=== PATIENT | male | born 1995 | race American Indian/Alaskan Native ===

== ENCOUNTER 2018-02-04 11:07 | Inpatient (IN) | payer OTHER ==
[2018-02-04 12:14] LABS: Hematocrit 46.8 % (35.5-45.6); Hemoglobin 15.9 gm/dl (11.8-15.2); Mean Corpuscular HGB Conc 34 % (32-34); Mean Corpuscular Hemoglobin 29 pg (28-32); Mean Corpuscular Volume 85 fl (84-94); Platelet Count 234 K/mm3 (140-440); Red Blood Count 5.51 M/mm3 (3.65-5.03)
[2018-02-04 12:31] LABS: BUN/Creatinine Ratio 16; Blood Urea Nitrogen 11 mg/dL (9-20); Calcium 9.5 mg/dL (8.4-10.2); Hemolysis Index 3
[2018-02-04] MEDS ORDERED: NACL 0.9% 500 ML 500 ML IV ONE (13:06)
[2018-02-04] MEDS ORDERED: NACL 0.9% 1000 ML 1,000 ML ONE ×2 (13:19→22:22)
[2018-02-04] MEDS ORDERED: NACL 0.9% 1000 ML 2,000 ML IV ONE (13:22)
[2018-02-04] MEDS ORDERED: ZOSYN/NS 4.5GM/100ML 4.5 GM/100 ML VIAL IV ONE (13:23)
[2018-02-04] MEDS ORDERED: SODIUM CHLORIDE FLUSH SYRINGE 10 ML IV PRN (13:42)
[2018-02-04] MEDS ORDERED: TYLENOL PO PRN (13:42)
[2018-02-04] MEDS ORDERED: ZOFRAN IV PRN ×2 (13:42→22:04)
[2018-02-04] MEDS ORDERED: MORPHINE IV PRN (13:42)
[2018-02-04] MEDS ORDERED: PROVENTIL IH PRN (13:42)
--- NOTE | 2018-02-04 13:44 | History and Physical Report ---
History of Present Illness Chief complaint: I have a bump on my butt History of present illness: 22 YO Male with CP, RHP, Contracture presents to ED for evaluation. Pt states that he has experienced a painful "bump" on his right buttock for the past 3 days. Pt denies drainage, fever, chills, CP, palpitations, trauma, or recent ill contacts. Pt seen and evaluated in ED and found to have Right Gluteal Cellulitis with suspicion of abscess. Pt admitted to medical floor. Surgery consulted. - Past History Past Medical History: other (CP, Contracture) Past Surgical History: bowel surgery, Other (Shunt) Social history: single, lives with family. denies: smoking, alcohol abuse, prescription drug abuse Family history: no significant family history (reviewed) Medications and Allergies Allergies Allergy/AdvReac Type Severity Reaction Status Date / Time No Known Allergies Allergy Unverified 02/04/18 11:34 Home Medications Medication Instructions Recorded Confirmed Last Taken Type ALBUTEROL Inhaler 2 inh BID 02/04/18 02/04/18 Unknown History Pulmicort Flexhaler 2 inh ID BID 02/04/18 02/04/18 Unknown History Active Meds: Active Medications Acetaminophen (Tylenol) 650 mg PO Q4H PRN PRN Reason: Pain MILD(1-3)/Fever >100.5/HIRSCH Albuterol (Proventil) 2.5 mg IH Q4HRT PRN PRN Reason: Shortness Of Breath Sodium Chloride (Nacl 0.9% 1000 Ml) 2,000 mls @ 999 mls/hr IV BOLUS ONE Stop: 02/04/18 15:22 Piperacillin Sod/Tazobactam Sod (Zosyn/Ns 4.5gm/100ml) 4.5 gm in 100 mls @ 200 mls/hr IV ONCE ONE Stop: 02/04/18 13:52 Vancomycin HCl 1,250 mg/ (Sodium Chloride) 262.5 mls @ 166.667 mls/hr IV ONCE ONE Stop: 02/04/18 15:34 Vancomycin HCl (Vancomycin/Ns 1 Gm/250 Ml) 1 gm in 250 mls @ 166.667 mls/hr IV Q12H YIMI Morphine Sulfate (Morphine) 2 mg IV Q4H PRN PRN Reason: Pain, Moderate (4-6) Ondansetron HCl (Zofran) 4 mg IV Q8H PRN PRN Reason: Nausea And Vomiting Vancomycin HCl (Vancomycin Pharmacy To Dose) 1 each IV PKCONSULT YIMI; Protocol Review of Systems Constitutional: no weight loss, no weight gain, no fever, no chills Ears, nose, mouth and throat: no ear pain, no ear discharge, no tinnitis, no decreased hearing, no nose pain Cardiovascular: no chest pain, no orthopnea, no palpitations, no edema, no syncope Respiratory: no cough, no cough with sputum, no excessive sputum, no hemoptysis , no shortness of breath Gastrointestinal: no abdominal pain, no nausea, no vomiting, no diarrhea, no constipation Genitourinary Male: no hematuria, no flank pain, no discharge, no urinary frequency, no urinary hesitancy, no nocturia, no incontinence Rectal: no pain, no incontinence, no bleeding Musculoskeletal: no neck stiffness, no neck pain, no shooting arm pain, no arm numbness/tingling, no low back pain, no shooting leg pain Integumentary: redness, boils Neurological: no transient paralysis, no paralysis, no parathesias, no numbness , no tingling, no seizures Psychiatric: no anxiety, no memory loss, no change in sleep habits, no sleep disturbances, no insomnia, no hypersomnia, no change in appetite Endocrine: no cold intolerance, no heat intolerance, no polyphagia, no polydipsia, no polyuria, no nocturia Hematologic/Lymphatic: no easy bruising, no easy bleeding, no lymphadenopathy Allergic/Immunologic: no urticaria, no allergic rhinitis, no wheezing, no persistent infections, no anaphylaxis, no angioedema Exam - Constitutional Vitals: Temp Pulse Resp BP Pulse Ox 99.2 F 115 H 18 135/76 99 02/04/18 11:31 02/04/18 11:31 02/04/18 11:31 02/04/18 11:31 02/04/18 11:31 General appearance: Present: mild distress - EENT Eyes: Present: PERRL ENT: hearing intact, clear oral mucosa - Neck Neck: Present: supple, normal ROM - Respiratory Respiratory effort: normal Respiratory: bilateral: CTA - Cardiovascular Heart Sounds: Present: S1 & S2. Absent: rub, click - Extremities Extremities: pulses symmetrical, No edema Peripheral Pulses: within normal limits - Abdominal General gastrointestinal: Present: soft, non-tender, non-distended, normal bowel sounds Male genitourinary: Present: normal - Integumentary Integumentary: Present: clear, warm, dry, erythema (Right buttock) - Musculoskeletal Musculoskeletal: strength equal bilaterally, other (R contracture) - Psychiatric Psychiatric: appropriate mood/affect, intact judgment & insight - Neurologic Neurologic: CNII-XII intact, moves all extremities Results - Labs CBC & Chem 7: 02/04/18 13:37 02/04/18 13:37 Labs: Abnormal lab results 02/04/18 02/04/18 02/04/18 Range/Units 12:00 12:00 12:00 WBC 12.7 H (4.5-11.0) K/mm3 RBC 5.51 H (3.65-5.03) M/mm3 Hgb 15.9 H (11.8-15.2) gm/dl Hct 46.8 H (35.5-45.6) % Creatinine 0.7 L (0.8-1.5) mg/dL Glucose 105 H (75-100) mg/dL Lactic Acid 3.10 H* (0.7-2.0) mmol/L Assessment and Plan - Patient Problems (1) Cellulitis Current Visit: Yes Status: Acute Qualifiers: Laterality: right Plan to address problem: Right Buttock Cellulitis: IV antibiotic therapy, CBC, CMP, CT Abdomen/Pelvis, IVF resuscitation, (2) Abscess, gluteal, right Current Visit: Yes Status: Acute Plan to address problem: CT ABdomen Pelvis, surgery consulted in ED, surgical intervention as per surgical team. (3) SIRS (systemic inflammatory response syndrome) Current Visit: Yes Status: Acute Plan to address problem: IV antibiotics, IVF resuscitation, monitor uop q shift, CBM, CMP, (4) DVT prophylaxis Current Visit: Yes Status: Acute Plan to address problem: SCD to BLE while in bed.
[2018-02-04 13:54] LABS: Basophils % (Auto) 0.3 % (0.0-1.8); Eosinophils # (Auto) 0.2 K/mm3 (0.0-0.4); Eosinophils % (Auto) 1.5 % (0.0-4.3); Hemoglobin 14.7 gm/dl (11.8-15.2); Mean Corpuscular HGB Conc 34 % (32-34); Mean Corpuscular Hemoglobin 29 pg (28-32); Mean Corpuscular Volume 85 fl (84-94); Monocytes % (Auto) 8.5 % (0.0-7.3); Platelet Count 220 K/mm3 (140-440); Red Blood Count 5.08 M/mm3 (3.65-5.03); Red Cell Distribution Width 13.5 % (13.2-15.2)
[2018-02-04] MEDS ORDERED: VANCOMYCIN 1,250 MG in NACL 0.9% 250ML 250 ML IV ONE (14:00)
[2018-02-04] MEDS ORDERED: VANCOMYCIN PHARMACY TO DOSE IV SCH (14:00)
[2018-02-04 14:02] LABS: INR 1.13 (0.87-1.13)
[2018-02-04 14:13] LABS: Alanine Aminotransferase 19 units/L (7-56); BUN/Creatinine Ratio 16; Blood Urea Nitrogen 11 mg/dL (9-20); Hemolysis Index 14
[2018-02-04 14:41] LABS: Bilirubin,Urine NEG (Negative); Blood,Urine NEG (Negative); Color,Urine Yellow (Yellow); Mucus,Urine 1+ /HPF; Protein,Urine <15 mg/dL mg/dL (Negative)
[2018-02-04] MEDS ORDERED: XYLOCAINE 1% 20 mL INFILTRATI STA (15:57)
--- NOTE | 2018-02-04 16:18 | Consultation ---
History of Present Illness Consult date: 02/04/18 Reason for consult: other (wound gluteal abscess) Chief complaint: buttock pain and lump - History of present illness History of present illness: 22 yo M with hx of CP and multiple past abdominal surgeries presents with c/o pain of the right buttock. The pain is pressure like, started 3 days ago, and localized to the right gluteal area. The pain is mild when laying on his side but is a 10/10 when the area is touched. He is not able to sit down. He denies drainage, f/c, cp, sob, n/v, abd pain. He has never had anything like this in the past. Past History Past Medical History: other (cerebral palsy) Social history: no significant social history Family history: no significant family history Medications and Allergies Allergies Allergy/AdvReac Type Severity Reaction Status Date / Time No Known Allergies Allergy Unverified 02/04/18 11:34 Active Meds: Active Medications Acetaminophen (Tylenol) 650 mg PO Q4H PRN PRN Reason: Pain MILD(1-3)/Fever >100.5/HIRSCH Albuterol (Proventil) 2.5 mg IH Q4HRT PRN PRN Reason: Shortness Of Breath Vancomycin HCl (Vancomycin/Ns 1 Gm/250 Ml) 1 gm in 250 mls @ 166.667 mls/hr IV Q12H YIMI Morphine Sulfate (Morphine) 2 mg IV Q4H PRN PRN Reason: Pain, Moderate (4-6) Ondansetron HCl (Zofran) 4 mg IV Q8H PRN PRN Reason: Nausea And Vomiting Sodium Chloride (Sodium Chloride Flush Syringe 10 Ml) 10 ml IV BID YIMI Sodium Chloride (Sodium Chloride Flush Syringe 10 Ml) 10 ml IV PRN PRN PRN Reason: LINE FLUSH Vancomycin HCl (Vancomycin Pharmacy To Dose) 1 each IV PKCONSULT YIMI; Protocol Review of Systems All systems: negative (10 point ROS performed and negative except for that listed in HPI) Exam Vital Signs Temp Pulse Resp BP Pulse Ox 99.2 F 115 H 18 135/76 99 02/04/18 11:31 02/04/18 11:31 02/04/18 11:31 02/04/18 11:31 02/04/18 11:31 Narrative exam: Gen: AAOx3. NAD. childish affect CV: S1, S2+ Resp: even and unlabored Ext: no c/c/e Gluteal: R upper intergluteal abscess with discoloration of skin overlying area , very foul smelling discharge. Very TTP. Patient does not allow exam secondary to pain. Results - Labs 02/04/18 13:37 02/04/18 13:37 Abnormal lab results 02/04/18 02/04/18 02/04/18 Range/Units 12:00 12:00 12:00 WBC 12.7 H (4.5-11.0) K/mm3 RBC 5.51 H (3.65-5.03) M/mm3 Hgb 15.9 H (11.8-15.2) gm/dl Hct 46.8 H (35.5-45.6) % [place] % (Auto) (0.0-7.3) % [place] # (0.0-0.8) K/mm3 Seg Neutrophils % (40.0-70.0) % Seg Neutrophils # (1.8-7.7) K/mm3 PT (12.2-14.9) Sec. VBG pH (7.320-7.420) Creatinine 0.7 L (0.8-1.5) mg/dL Glucose 105 H (75-100) mg/dL Lactic Acid 3.10 H* (0.7-2.0) mmol/L 02/04/1818 02/04/18 Range/Units 13:37 13:37 13:37 WBC 11.9 H (4.5-11.0) K/mm3 RBC 5.08 H (3.65-5.03) M/mm3 Hgb (11.8-15.2) gm/dl Hct (35.5-45.6) % [place] % (Auto) 8.5 H (0.0-7.3) % [place] # 1.0 H (0.0-0.8) K/mm3 Seg Neutrophils % 72.7 H (40.0-70.0) % Seg Neutrophils # 8.6 H (1.8-7.7) K/mm3 PT 15.1 H (12.2-14.9) Sec. VBG pH (7.320-7.420) Creatinine 0.7 L (0.8-1.5) mg/dL Glucose (75-100) mg/dL Lactic Acid (0.7-2.0) mmol/L 02/04/18 Range/Units 13:37 WBC (4.5-11.0) K/mm3 RBC (3.65-5.03) M/mm3 Hgb (11.8-15.2) gm/dl Hct (35.5-45.6) % [place] % (Auto) (0.0-7.3) % [place] # (0.0-0.8) K/mm3 Seg Neutrophils % (40.0-70.0) % Seg Neutrophils # (1.8-7.7) K/mm3 PT (12.2-14.9) Sec. VBG pH 7.315 L (7.320-7.420) Creatinine (0.8-1.5) mg/dL Glucose (75-100) mg/dL Lactic Acid (0.7-2.0) mmol/L Diabetes panel 02/04/18 02/04/18 Range/Units 12:00 13:37 Sodium 141 141 (137-145) mmol/L Potassium 3.9 3.8 (3.6-5.0) mmol/L Chloride 102.4 103.7 (98-107) mmol/L Carbon Dioxide 25 24 (22-30) mmol/L BUN 11 11 (9-20) mg/dL Creatinine 0.7 L 0.7 L (0.8-1.5) mg/dL Glucose 105 H 84 (75-100) mg/dL Calcium 9.5 9.0 (8.4-10.2) mg/dL AST 13 (5-40) units/L ALT 19 (7-56) units/L Alkaline Phosphatase 91 (35-129) units/L Total Protein 7.4 (6.3-8.2) g/dL Albumin 4.0 (3.9-5) g/dL Calcium panel 02/04/18 02/04/18 Range/Units 12:00 13:37 Calcium 9.5 9.0 (8.4-10.2) mg/dL Albumin 4.0 (3.9-5) g/dL Pituitary panel 02/04/18 02/04/18 Range/Units 12:00 13:37 Sodium 141 141 (137-145) mmol/L Potassium 3.9 3.8 (3.6-5.0) mmol/L Chloride 102.4 103.7 (98-107) mmol/L Carbon Dioxide 25 24 (22-30) mmol/L BUN 11 11 (9-20) mg/dL Creatinine 0.7 L 0.7 L (0.8-1.5) mg/dL Glucose 105 H 84 (75-100) mg/dL Calcium 9.5 9.0 (8.4-10.2) mg/dL Adrenal panel 02/04/18 02/04/18 Range/Units 12:00 13:37 Sodium 141 141 (137-145) mmol/L Potassium 3.9 3.8 (3.6-5.0) mmol/L Chloride 102.4 103.7 (98-107) mmol/L Carbon Dioxide 25 24 (22-30) mmol/L BUN 11 11 (9-20) mg/dL Creatinine 0.7 L 0.7 L (0.8-1.5) mg/dL Glucose 105 H 84 (75-100) mg/dL Calcium 9.5 9.0 (8.4-10.2) mg/dL Total Bilirubin 0.40 (0.1-1.2) mg/dL AST 13 (5-40) units/L ALT 19 (7-56) units/L Alkaline Phosphatase 91 (35-129) units/L Total Protein 7.4 (6.3-8.2) g/dL Albumin 4.0 (3.9-5) g/dL - Imaging CT scan - abdomen: report reviewed, image reviewed CT scan - pelvis: report reviewed, image reviewed Assessment and Plan 22 yo M with right gluteal abscess, hx of cerebral palsy and multiple abdominal surgeries Plan: 1. NPO 2. IVF 3. vanco and zosyn IV 4. prn pain control 5. The patient cannot tolerate bedside debridement. He will not even allow a thorough physical exam because of pain and anxiety. I will schedule him for OR for incision and drainage of gluteal abscess. All risks, benefits, alternatives were discussed with the patient and his mother and consent signed by mother. 6. wound care consult post op Thank you for this consultation, please call with questions or concerns.
--- NOTE | 2018-02-04 17:13 | Emergency Department Report ---
ED General Adult HPI - General Chief complaint: Skin/Abscess/Foreign Body Stated complaint: RIGHT SIDED LEG PAIN Time Seen by Provider: 02/04/18 13:02 Source: patient Mode of arrival: Ambulatory Limitations: No Limitations - History of Present Illness Initial comments: This is a 22 year old male probably a poor historian but is able to answer questions quite coherently. He is ambulatory without assistance. Presents with his family members. He has a history of cerebral palsy and right sided weakness chronically. He states that he has had a bump in the right gluteal fold for 3 days. He is noted to have a very foul and probably anaerobic odor about him. However he states that he has not had any drainage. He does not report any fever or chills. He has a history of previous colostomy and ileostomy. The family denies that he has a history of Crohn's disease. I do not think he has had any prior I&D of that area. History is somewhat limited secondary to language barrier of the family and the patient's cerebral palsy. -: days(s) (states 3 days) Location: buttocks Radiation: non-radiation Quality: burning Consistency: intermittent Improves with: none Worsens with: other (pressure on area) Associated Symptoms: denies other symptoms Treatments Prior to Arrival: none - Related Data Home Medications Medication Instructions Recorded Confirmed Last Taken ALBUTEROL Inhaler 2 inh BID 02/04/18 02/04/18 Unknown Pulmicort Flexhaler 2 inh ID BID 02/04/18 02/04/18 Unknown Allergies Allergy/AdvReac Type Severity Reaction Status Date / Time No Known Allergies Allergy Unverified 02/04/18 11:34 ED Review of Systems ROS: Stated complaint: RIGHT SIDED LEG PAIN Other details as noted in HPI Constitutional: denies: chills, fever Eyes: denies: eye pain, eye discharge, vision change ENT: denies: ear pain, throat pain Respiratory: denies: cough, shortness of breath, wheezing Cardiovascular: denies: chest pain, palpitations Endocrine: no symptoms reported Gastrointestinal: as per HPI. denies: abdominal pain, nausea, diarrhea Genitourinary: denies: urgency, dysuria Musculoskeletal: denies: back pain, joint swelling, arthralgia Skin: denies: rash, lesions Neurological: denies: headache, weakness, paresthesias Psychiatric: denies: anxiety, depression Hematological/Lymphatic: denies: easy bleeding, easy bruising ED Past Medical Hx - Past Medical History Hx Asthma: Yes Additional medical history: cerebral palsy,shunt, right-sides numbness, right hand contractors - Surgical History Additional Surgical History: shunt,RAMIRO stomach - Social History Smoking Status: Never Smoker - Medications Home Medications: Home Medications Medication Instructions Recorded Confirmed Last Taken Type ALBUTEROL Inhaler 2 inh BID 02/04/18 02/04/18 Unknown History Pulmicort Flexhaler 2 inh ID BID 02/04/18 02/04/18 Unknown History ED Physical Exam - General Limitations: Physical Limitation General appearance: alert, in no apparent distress - Head Head exam: Present: atraumatic, normocephalic - Eye Eye exam: Present: normal appearance, PERRL, EOMI. Absent: scleral icterus - ENT ENT exam: Present: mucous membranes moist - Neck Neck exam: Present: normal inspection. Absent: tenderness, meningismus - Respiratory Respiratory exam: Present: normal lung sounds bilaterally. Absent: respiratory distress - Cardiovascular Cardiovascular Exam: Present: regular rate, normal rhythm. Absent: systolic murmur, diastolic murmur, rubs, gallop - GI/Abdominal GI/Abdominal exam: Present: soft, normal bowel sounds, other (surgical scars multiple). Absent: distended, tenderness, guarding, rebound, rigid - Rectal Rectal exam: Present: other (there is an abscess without pointing in the right gluteal fold. Rectal exam wasn't possible due to the patient's hallway position.) - Extremities Exam Extremities exam: Present: other (right upper extremity contracture) - Back Exam Back exam: Present: normal inspection - Neurological Exam Neurological exam: Present: alert, oriented X3, other (chronic right hemiparesis ) - Psychiatric Psychiatric exam: Present: normal mood, flat affect - Skin Skin exam: Present: warm, dry, intact, normal color. Absent: rash ED Course Vital Signs 02/04/18 02/04/18 02/04/18 11:31 15:10 15:13 Temperature 99.2 F 98.9 F Pulse Rate 115 H 97 H Respiratory 18 Rate Blood Pressure 135/76 Blood Pressure 109/69 [Right] O2 Sat by Pulse 99 97 Oximetry - Reevaluation(s) Reevaluation #1: Patient's lactic acid level was over 3. He was treated for presumed sepsis. Consult to surgery was placed. He was begun on Zosyn and vancomycin. Had multiple prior surgeries. There was a reasonable possibility of a deep-seated infection. A CT of his abdomen was ordered. The patient was admitted to the hospitalist with a consult to surgery for further care and evaluation in stable condition. 02/04/18 17:16 ED Medical Decision Making - Lab Data Result diagrams: 02/04/18 13:37 02/04/18 13:37 Laboratory Results - last 24 hr 02/04/18 02/04/18 02/04/18 12:00 12:00 12:00 WBC 12.7 H RBC 5.51 H Hgb 15.9 H Hct 46.8 H MCV 85 MCH 29 MCHC 34 RDW 14.0 Plt Count 234 Lymph % (Auto) [place] % (Auto) Eos % (Auto) Baso % (Auto) Lymph # [place] # Eos # Baso # Seg Neutrophils % Seg Neutrophils # PT INR VBG pH Sodium 141 Potassium 3.9 Chloride 102.4 Carbon Dioxide 25 Anion Gap 18 BUN 11 Creatinine 0.7 L Estimated GFR > 60 BUN/Creatinine Ratio 16 Glucose 105 H Lactic Acid 3.10 H* Calcium 9.5 Total Bilirubin AST ALT Alkaline Phosphatase Total Protein Albumin Albumin/Globulin Ratio 02/04/18 02/04/18 02/04/18 13:37 13:37 13:37 WBC 11.9 H RBC 5.08 H Hgb 14.7 Hct 43.0 MCV 85 MCH 29 MCHC 34 RDW 13.5 Plt Count 220 Lymph % (Auto) 17.0 [place] % (Auto) 8.5 H Eos % (Auto) 1.5 Baso % (Auto) 0.3 Lymph # 2.0 [place] # 1.0 H Eos # 0.2 Baso # 0.0 Seg Neutrophils % 72.7 H Seg Neutrophils # 8.6 H PT 15.1 H INR 1.13 VBG pH Sodium Potassium Chloride Carbon Dioxide Anion Gap BUN Creatinine Estimated GFR BUN/Creatinine Ratio Glucose Lactic Acid 1.40 Calcium Total Bilirubin AST ALT Alkaline Phosphatase Total Protein Albumin Albumin/Globulin Ratio 02/04/18 02/04/18 13:37 13:37 WBC RBC Hgb Hct MCV MCH MCHC RDW Plt Count Lymph % (Auto) [place] % (Auto) Eos % (Auto) Baso % (Auto) Lymph # [place] # Eos # Baso # Seg Neutrophils % Seg Neutrophils # PT INR VBG pH 7.315 L Sodium 141 Potassium 3.8 Chloride 103.7 Carbon Dioxide 24 Anion Gap 17 BUN 11 Creatinine 0.7 L Estimated GFR > 60 BUN/Creatinine Ratio 16 Glucose 84 Lactic Acid Calcium 9.0 Total Bilirubin 0.40 AST 13 ALT 19 Alkaline Phosphatase 91 Total Protein 7.4 Albumin 4.0 Albumin/Globulin Ratio 1.2 - Radiology Data Radiology results: pending (CT report is still pending.) interpreted by me: I do see evidence of the right gluteal abscess on CT. Report is pending. Chest x-ray yet pending Critical care attestation.: If time is entered above; I have spent that time in minutes in the direct care of this critically ill patient, excluding procedure time. ED Disposition Clinical Impression: Abscess, gluteal, right, Elevated lactic acid level Disposition: OP ADMIT IP TO THIS HOSP Is pt being admited?: Yes Does the pt Need Aspirin: No Condition: Stable Time of Disposition: 17:21
--- NOTE | 2018-02-04 17:28 | XRay Report ---
FINAL REPORT EXAM: XR CHEST 1V AP HISTORY: possible Sepsis,GLUTEAL FOLD ABSCESS TECHNIQUE: AP portable view of the chest PRIORS: None. FINDINGS: Lines, tubes, and devices: N/A Lungs and pleura: Trachea is normal in position. Lungs are clear of infiltrate, pleural effusion, vascular congestion, or pneumothorax. Patient is rotated to the right. Cardiomediastinal silhouette: Cardiac and mediastinal silhouettes are unremarkable. Other: Bony structures are intact. IMPRESSION: No acute cardiopulmonary process seen.
--- NOTE | 2018-02-04 17:46 | Cat Scan Report ---
FINAL REPORT EXAM: CT ABDOMEN PELVIS W CON HISTORY: gluteal fold abscess,sepsis TECHNIQUE: Axial images were performed from the lung bases to the pubic symphysis. Multiplanar reformats are performed on the acquisition scanner. Total exam DLP 1781.75 mGy-cm Patient was scanned prone. Delayed phase images were performed Comparison: None FINDINGS: Clear lung bases. Normal enhancement and appearance of the liver, spleen, pancreas, gallbladder, bilateral adrenal glands and bilateral kidneys. There appears to be an artifact or collateral circulation around the periphery of the left lobe liver. Mesenteric vasculature is unremarkable. Bowel pattern is nonobstructive. There is atypical fluid in the right posterior subhepatic space/Jenkins's pouch and paracolic gutter posterior to the colon. There is motion degradation. Normal appendix right lower quadrant, slightly motion degraded. Moderately distended urinary bladder. Prostate is not enlarged. Multiple mildly prominent bilateral inguinal lymph nodes. We no significant retroperitoneal adenopathy. Right gluteal area of induration beginning at the level of the distal sacrum with a focal phlegmonous appearing region centrally measuring approximately 2.4 x 2.3 centimeters. No drainable abscess identified. Underlying bone does not appear to be affected. There is no intramuscular abscess. Delayed phase imaging demonstrates normal contrast excretion and filling of the urinary bladder There is no peroneal fluid or air. IMPRESSION: 2.4 x 2.3 centimeter right gluteal fold phlegmonous appearing process with surrounding inflammation but no definite drainable abscess, beginning at the level the distal sacrum/coccyx. No definite evidence for erosion of the underlying bone or involvement of the muscular layer. Morison's pouch/right para colic gutter simple appearing fluid from uncertain etiology. Exam is mildly motion degraded. The appendix is normal. There isalteration the anatomy due to the prone scanning. Dextroscoliosis lumbosacral spine.
[2018-02-04] MEDS ORDERED: VERSED ONE (21:58)
[2018-02-04] MEDS ORDERED: DIPRIVAN 10 MG/ML IV ONE (21:59)
[2018-02-04] MEDS ORDERED: DILAUDID IV PRN (22:04)
[2018-02-04] MEDS ORDERED: XYLOCAINE 2% INFILTRATI ONE (22:40)
[2018-02-04] MEDS ORDERED: NACL 0.9% IR ONE (22:40)
--- NOTE | 2018-02-04 22:58 | Operative Report ---
Operative Report Operative Report: Date of operation: 02/04/18 Preoperative diagnosis: Right gluteal abscess, sepsis Postoperative diagnosis: Same as above Procedure performed: Incision and drainage of right gluteal abscess Surgeon:Mp Bonilla DO Anesthesia: Mac Estimated blood loss: 10 mL Findings: 5 cm (l) x 6 cm (w) x 3 cm (d) right gluteal abscess Complications: None Disposition: Stable to PACU [facility] indication: Patient's [id number] male with past medical history of cerebral palsy presents to the emergency room with complaints of pain in his right gluteal region and a bump. He was found to have an elevated white blood cell count, and right gluteal abscess on physical exam as well as CT scan. The patient could not tolerate a bedside debridement and therefore with scheduled for the operating room for incision and drainage of right gluteal abscess. All risks, benefits, alternatives to surgery were discussed with the patient's mother signed consent. Procedure in detail: The patient was identified in the preoperative area, taken back to the operating room, placed on the stretcher in left lateral decubitus position. After anesthesia was induced, the gluteal area was prepped and draped in the usual sterile fashion a timeout performed. 2% lidocaine was infiltrated into the skin and subcutaneous tissue surrounding the abscess. There was a small area of drainage already seen, draining foul-smelling brown fluid. A inverted T incision was made extending the area of drainage using a 15 blade. This caused an immediate release of foul-smelling brown fluid. Approximately 30 mL was evacuated. The wound was probed with a hemostat and a gloved finger in order to break up all loculations. Once abscess cavity was adequately evacuated, the wound was irrigated with a copious amount of saline solution. The underlying tissue was healthy. There was some generalized oozing from the wound, which was controlled with pressure. The wound was packed with 1 inch plain packing which was soaked in 2% lidocaine. It was covered with 4 x 4 fluffed gauze, ABDs pads, and secured with a mesh underwear. At the end of the case, all sponge, instrument, sharp counts were correct 2. The patient was awoken from anesthesia and taken to the PACU in stable condition.
[2018-02-04] MEDS ORDERED: MOTRIN PO PRN (22:59)
[2018-02-04] MEDS ORDERED: ULTRAM PO PRN (22:59)
[2018-02-04] MEDS ORDERED: D5/0.45NS 1,000 ML IV SCH (23:00)
--- NOTE | 2018-02-04 23:21 | Post Anesthesia Evaluation ---
- Post Anesthesia Evaluation Patient Participated: Yes Airway Patent: Yes Stable Respiratory Function: Yes Nausea/Vomiting: No Temp > 96.8F: Yes Pain Manageable: Yes Adequeate Hydration: Yes Anesthesia Complications: No
[2018-02-05] MEDS ORDERED: VANCOMYCIN/NS 1 GM/250 ML 1 GM/250 ML BAG IV SCH (04:00)
[2018-02-05] MEDS: SODIUM CHLORIDE FLUSH SYRINGE 10 ML IV SCH ×2 (10:46)
[2018-02-05] MEDS ORDERED: PNEUMOVAX 23 IM ONE (12:00)
[2018-02-05] MEDS ORDERED: ZOSYN/NS 4.5GM/100ML 4.5 GM/100 ML VIAL IV SCH (12:00)
--- NOTE | 2018-02-05 14:55 | Progress Note ---
Assessment and Plan 22 yo M s/p Incision and drainage of right gluteal abscess POD 1 Plan: 1. packing changed by mock up maker today 2. prn PO pain control 3. abx - dc on bactrim x 10 days 4. final cultures pending, will follow up with as outpatient 5. follow up in wound care clinic on Sunday - appointment made 6. home health care consult OK for dc home from surgery standpoint Thank you. Please call with questions or concerns. Subjective Date of service: 02/05/18 Narrative: Pt seen and examined. No complaints. No f/c. Feels better Objective Vital Signs - 12hr 02/05/18 02/05/18 04:11 07:35 Temperature 98.6 F 98.9 F Pulse Rate 77 89 Respiratory 16 20 Rate Blood Pressure 91/55 105/69 O2 Sat by Pulse 98 99 Oximetry - General physical appearance Narrative Exam: Gen: AAOx3. NAD CV: S1, S2+ Resp: even and unlabored Gluteal: dressing c/d/i - Labs 02/04/18 13:37 02/04/18 13:37
--- NOTE | 2018-02-05 15:41 | Discharge Summary ---
<OTTORAMÓNKRYSTLE R - Last Filed: 02/05/18 15:36> Providers - Providers Date of Admission: 02/04/18 13:42 Date of discharge: 02/05/18 Attending physician: KRYSTLE MENJIVAR 02/04/18 13:20 Consult to Physician [CONS] Urgent Comment: Consulting Provider: TAYLOR HANEY Physician Instructions: Reason For Exam: sepsis, gluteal fold abscess, mult surgs 02/04/18 23:00 Consult to Wound/ET Nurse [CONS] Routine Reason For Exam: surgical wound right gluteal Primary care physician: RESIDENTIAL TECH Hospitalization Condition: Stable Hospital course: Patient is 22 yo man with history of CP, right hemiparesis who presented with gluteal abscess "Operative Report: Date of operation: 02/04/18 Preoperative diagnosis: Right gluteal abscess, sepsis Postoperative diagnosis: Same as above Procedure performed: Incision and drainage of right gluteal abscess Surgeon:Mp Haney DO Anesthesia: Mac Estimated blood loss: 10 mL Findings: 5 cm (l) x 6 cm (w) x 3 cm (d) right gluteal abscess Complications: None Disposition: Stable to PACU [place] indication: Patient's aoonla-iait-ray male with past medical history of cerebral palsy presents to the emergency room with complaints of pain in his right gluteal region and a bump. He was found to have an elevated white blood cell count, and right gluteal abscess on physical exam as well as CT scan. The patient could not tolerate a bedside debridement and therefore with scheduled for the operating room for incision and drainage of right gluteal abscess. All risks, benefits, alternatives to surgery were discussed with the patient's mother signed consent. Procedure in detail: The patient was identified in the preoperative area, taken back to the operating room, placed on the stretcher in left lateral decubitus position. After anesthesia was induced, the gluteal area was prepped and draped in the usual sterile fashion a timeout performed. 2 % lidocaine was infiltrated into the skin and subcutaneous tissue surrounding the abscess. There was a small area of drainage already seen, draining foul- smelling brown fluid. A inverted T incision was made extending the area of drainage using a 15 blade. This caused an immediate release of foul-smelling brown fluid. Approximately 30 mL was evacuated. The wound was probed with a hemostat and a gloved finger in order to break up all loculations. Once abscess cavity was adequately evacuated, the wound was irrigated with a copious amount of saline solution. The underlying tissue was healthy. There was some generalized oozing from the wound, which was controlled with pressure. The wound was packed with 1 inch plain packing which was soaked in 2% lidocaine. It was covered with 4 x 4 fluffed gauze, ABDs pads, and secured with a mesh underwear. At the end of the case, all sponge, instrument, sharp counts were correct 2. The patient was awoken from anesthesia and taken to the PACU in stable condition." Disposition: DC-01 TO HOME OR SELFCARE Time spent for discharge: 35 minutes Core Measure Documentation - Palliative Care Palliative Care/ Comfort Measures: Not Applicable - Core Measures Any of the following diagnoses?: none - VTE Discharge Requirements Deep Vein Thrombosis/Pulmonary Embolism Present on Admission: No Has pt received <5 days of overlap therapy or INR<2.0: No Anticoagulant overlap therapy prescribed at discharge: No Contraindication No Overlap Therapy order at DC: Not Indicated Exam - Constitutional Vitals: Temp Pulse Resp BP Pulse Ox 98.9 F 89 20 105/69 99 02/05/18 07:35 02/05/18 07:35 02/05/18 07:35 02/05/18 07:35 02/05/18 07:35 General appearance: Present: no acute distress - EENT Eyes: Present: PERRL, EOM intact ENT: hearing intact, clear oral mucosa - Neck Neck: Present: supple, normal ROM - Respiratory Respiratory effort: normal Respiratory: bilateral: CTA - Cardiovascular Rhythm: regular Heart Sounds: Present: S1 & S2 Peripheral Pulses: within normal limits - Abdominal General gastrointestinal: Present: soft, non-tender, non-distended, normal bowel sounds - Integumentary Integumentary: Present: clear, warm, dry - Musculoskeletal Musculoskeletal: right sided weakness - Neurologic Neurologic: CNII-XII intact, focal deficits Plan Activity: other (no strenous activity) Diet: regular Wound: per your surgeon's advice Follow up with: TAYLOR HANEY DO [Staff Physician] - 7 Days PRIMARY CARE, [Primary Care Provider] - 7 Days Prescriptions: Acetaminophen [Acetaminophen TAB] 650 mg PO Q4H PRN #30 tablet PRN Reason: Fever Sulfamethoxazole/Trimethoprim [Bactrim DS TAB] 1 each PO BID #20 tablet <TAYLOR HANEY - Last Filed: 02/05/18 16:34> Providers - Providers Date of Admission: 02/04/18 13:42 Attending physician: KRYSTLE MENJIVAR 02/04/18 13:20 Consult to Physician [CONS] Urgent Comment: Consulting Provider: TAYLOR HANEY Physician Instructions: Reason For Exam: sepsis, gluteal fold abscess, mult surgs 02/04/18 23:00 Consult to Wound/ET Nurse [CONS] Routine Reason For Exam: surgical wound right gluteal Primary care physician: RESIDENTIAL TECH Exam - Constitutional Vitals: Temp Pulse Resp BP Pulse Ox 98.9 F 89 20 105/69 99 02/05/18 07:35 02/05/18 07:35 02/05/18 07:35 02/05/18 07:35 02/05/18 07:35 Plan Wound: per wound nurse instructions Additional Instructions: Remove all packing from wound and cleanse wound with soap and water. Pack wound with mesalt packing every other day. Cover with dry pad. Follow up with Dr. Haney at wound care center on Sunday02/11/18 @1:00,. [address] [facility] [address] [place] [id number]. [phone]
[2018-02-05 16:43] VITALS: BP 99/54
== END 2018-02-05 20:50 | disposition home or self-care (01) | DRG 854 ==
LOC: ED 11:07 → 3A 13:42
PROVIDERS: ADMIT Internal Medicine; ATTEND Internal Medicine
PROC: 0J990ZZ Drainage of Buttock Subcutaneous Tissue and Fascia, Open Approach (ICD-10-PCS; principal; 2018-02-04)
PROC: 3E0234Z Introduction of Serum, Toxoid and Vaccine into Muscle, Percutaneous Approach (ICD-10-PCS; 2018-02-05)
DX: A41.9 Sepsis, unspecified organism (principal); L02.31 Cutaneous abscess of buttock; L03.317 Cellulitis of buttock; G81.91 Hemiplegia, unspecified affecting right dominant side; J45.909 Unspecified asthma, uncomplicated; Z23 Encounter for immunization
CPT/HCPCS: 36415; 71045; 74177; 80048; 80053; 81001; 82140; 82805; 85025; 85027; 85610; 87040; 87075; 87086; 87116; 90732; 93005; 93010; 96365; J2250; J2543; J2704; J3370; J7030; J7050; Q9967

== ENCOUNTER 2018-02-11 13:13 | Outpatient (CLI) | payer OTHER ==
[2018-02-11] MEDS ORDERED: XYLOCAINE TOPICAL 4% TP ONE ×2 (13:32→16:00)
== END 2018-02-11 13:14 | disposition home or self-care (01) ==
LOC: WOUND 13:13
PROVIDERS: ATTEND Surgery
DX: L02.31 Cutaneous abscess of buttock (principal); J45.909 Unspecified asthma, uncomplicated; G80.9 Cerebral palsy, unspecified
CPT/HCPCS: 99215; G0463

== ENCOUNTER 2018-02-18 13:16 | Outpatient (CLI) | payer OTHER ==
[2018-02-18] MEDS ORDERED: XYLOCAINE TOPICAL 4% TP ONE ×2 (13:20→13:31)
== END 2018-02-18 13:17 | disposition home or self-care (01) ==
LOC: WOUND 13:16
PROVIDERS: ATTEND Surgery
DX: L05.01 Pilonidal cyst with abscess (principal); J45.909 Unspecified asthma, uncomplicated; G80.9 Cerebral palsy, unspecified
CPT/HCPCS: 99214; G0463

== ENCOUNTER 2018-02-25 13:05 | Outpatient (CLI) | payer OTHER ==
[2018-02-25] MEDS ORDERED: XYLOCAINE TOPICAL 2% 5ML ONE (13:37)
[2018-02-25] MEDS ORDERED: XYLOCAINE TOPICAL 2% 5ML TP ONE (13:43)
== END 2018-02-25 13:06 | disposition home or self-care (01) ==
LOC: WOUND 13:05
PROVIDERS: ATTEND Surgery
DX: L05.01 Pilonidal cyst with abscess (principal); J45.909 Unspecified asthma, uncomplicated; G80.9 Cerebral palsy, unspecified
CPT/HCPCS: 99214; G0463

== ENCOUNTER 2018-03-04 12:59 | Outpatient (CLI) | payer OTHER ==
[2018-03-04] MEDS ORDERED: XYLOCAINE TOPICAL 2% 5ML ONE (13:07)
[2018-03-04] MEDS ORDERED: XYLOCAINE TOPICAL 2% 5ML TP ONE (13:17)
[2018-03-04] MEDS ORDERED: SILVER NITRATE TP ONE (13:17)
== END 2018-03-04 13:00 | disposition home or self-care (01) ==
LOC: WOUND 12:59
PROVIDERS: ATTEND Surgery
DX: L05.01 Pilonidal cyst with abscess (principal); J45.909 Unspecified asthma, uncomplicated; G80.9 Cerebral palsy, unspecified
CPT/HCPCS: 17250; G0463

== ENCOUNTER 2018-03-11 12:54 | Outpatient (CLI) | payer OTHER ==
[2018-03-11] MEDS ORDERED: SILVER NITRATE TP ONE ×2 (13:24→14:17)
== END 2018-03-11 12:55 | disposition home or self-care (01) ==
LOC: WOUND 12:54
PROVIDERS: ATTEND Surgery
DX: L05.01 Pilonidal cyst with abscess (principal); J45.909 Unspecified asthma, uncomplicated; G80.9 Cerebral palsy, unspecified
CPT/HCPCS: 17250; G0463